=== PATIENT | male | born 1980 | race Caucasian/White ===

== ENCOUNTER 2017-08-29 16:25 | Emergency (ER) | payer OTHER, SELFPAY ==
[2017-08-29 16:32] VITALS: BP 165/99; PULSE 102; RESP 20; TEMP 36.6; O2SAT 97; BMI 24.3
--- NOTE | 2017-08-29 16:39 | HMH.EDGENADL ---
ED Disposition Clinical Impression: Anal fissure Disposition: Home, Self-Care Condition on Discharge: Good Additional Instructions: 1- Drink plenty of liquids. 2- green leafy vegetables. 3- anusolsupp 4- keflex 5- follow up with Dr León in AM in the surgery clinic Referrals: Balbir León MD [Staff Physician] - - Critical Care Critical Care Time: No Attestation: On , the high probability of a clinically significant, sudden or life threatening deterioration of the following system(s) required my full and direct attention, intervention and personal management. The time I documented below is in addition to time spent performing reported procedures but includes the following listed in this critical care notation. Medical Decision Making - Medical Records Medical records reviewed: Yes: I reviewed the patient's medical records. - Jayant Inquiry Pt receiving controlled substance: No Jayant was queried for this patient: No Medical Decision Making Narrative: I reviewed with the patient his history and examination findings and future expectations. He was concerned about his insides and advised him about obtaining a chronic colonoscopy by special. General Adult HPI - General Stated complaint: Bloody Stools, lower abdominal - History of Present Illness HPI narrative: 37 years old white male who has been experiencing intermittent painful rectal bleeding since Wednesday. He had no episodes yesterday and he had twice a day. He states that he is not constipated but the stool was hard, so the blood when he wiped. Denies weakness dizziness shortness of breath. Onset (ago): day(s) (Intermittent for 2 days.) Severity: mild Quality: sharp Consistency: intermittent Relieving factors: other (No bowel movement. ) Exacerbating factors: other (Constipation and a bowel movement. ) Associated symptoms: denies other symptoms - Related Data Allergies Allergy/AdvReac Type Severity Reaction Status Date / Time No Known Drug Allergies Allergy Verified 08/29/17 16:41 [facility] History I have reviewed the patient's past medical history: Yes ROS Obtained: Yes All systems reviewed & no additional complaints - Constitutional Constitutional: Reports as per HPI - Eyes Eyes: Reports as per HPI - ENT Ears, Nose, Mouth, and Throat: Reports as per HPI - Cardiovascular Cardiovascular: Reports as per HPI - Respiratory Respiratory: Yes as per HPI - Gastrointestinal Gastrointestingal: Reports: as per HPI - Musculoskeletal Musculoskeletal: Reports as per HPI - Integumentary/Breasts Skin/Breast: Reports as per HPI - Neurologic Neurologic: Reports as per HPI - Endocrine Endocrine: Reports as per HPI - Hematologic/Lymphatic Henatologic/Lymphatic: Reports as per HPI - Allergic/Immunologic Allergic/Immunologic: Reports as per HPI Physical Exam - General General appearance: alert, in no apparent distress - Head Head exam: atraumatic, normocephalic, normal inspection - Eye Eye exam: Present: normal appearance, PERRL, EOMI - ENT ENT exam: Present: normal exam, normal oropharynx, mucous membranes moist, TM's normal bilaterally, normal external ear exam - Neck Neck exam: Present: normal inspection, full ROM, trachea midline. Absent: meningismus, lymphadenopathy - Chest Chest inspection: Present: normal inspection, symmetric chest wall rise. Absent: tenderness - Respiratory Respiratory exam: Present: normal lung sounds bilaterally. Absent: respiratory distress - Cardiovascular Cardiovascular exam: Present: regular rate, normal rhythm. Absent: JVD - Abdominal Exam Abdominal exam: Present: soft, normal bowel sounds. Absent: distention, tenderness, guarding - Rectal Exam Rectal exam: Present: normal inspection comment: Using a digital rectal exam there was an obvious anal fissure at 6:00 with fresh clot, no active bleeding. The examination was tender and I stop the exam. - Extr
--- NOTE | 2017-08-29 16:43 | ED_ITS ---
ED Disposition Clinical Impression: Anal fissure Disposition: Home, Self-Care Condition on Discharge: Good Additional Instructions: 1- Drink plenty of liquids. 2- green leafy vegetables. 3- anusolsupp 4- keflex 5- follow up with Dr León in AM in the surgery clinic Referrals: Balbir León MD [Staff Physician] - - Critical Care Critical Care Time: No Attestation: On , the high probability of a clinically significant, sudden or life threatening deterioration of the following system(s) required my full and direct attention, intervention and personal management. The time I documented below is in addition to time spent performing reported procedures but includes the following listed in this critical care notation. Medical Decision Making - Medical Records Medical records reviewed: Yes: I reviewed the patient's medical records. - Jayant Inquiry Pt receiving controlled substance: No Jayant was queried for this patient: No Medical Decision Making Narrative: I reviewed with the patient his history and examination findings and future expectations. He was concerned about his insides and advised him about obtaining a chronic colonoscopy by special. General Adult HPI - General Stated complaint: Bloody Stools, lower abdominal - History of Present Illness HPI narrative: 37 years old white male who has been experiencing intermittent painful rectal bleeding since Wednesday. He had no episodes yesterday and he had twice a day. He states that he is not constipated but the stool was hard, so the blood when he wiped. Denies weakness dizziness shortness of breath. Onset (ago): day(s) (Intermittent for 2 days.) Severity: mild Quality: sharp Consistency: intermittent Relieving factors: other (No bowel movement. ) Exacerbating factors: other (Constipation and a bowel movement. ) Associated symptoms: denies other symptoms - Related Data Allergies Allergy/AdvReac Type Severity Reaction Status Date / Time No Known Drug Allergies Allergy Verified 08/29/17 16:[address] [facility] History I have reviewed the patient's past medical history: Yes ROS Obtained: Yes All systems reviewed & no additional complaints - Constitutional Constitutional: Reports as per HPI - Eyes Eyes: Reports as per HPI - ENT Ears, Nose, Mouth, and Throat: Reports as per HPI - Cardiovascular Cardiovascular: Reports as per HPI - Respiratory Respiratory: Yes as per HPI - Gastrointestinal Gastrointestingal: Reports: as per HPI - Musculoskeletal Musculoskeletal: Reports as per HPI - Integumentary/Breasts Skin/Breast: Reports as per HPI - Neurologic Neurologic: Reports as per HPI - Endocrine Endocrine: Reports as per HPI - Hematologic/Lymphatic Henatologic/Lymphatic: Reports as per HPI - Allergic/Immunologic Allergic/Immunologic: Reports as per HPI Physical Exam - General General appearance: alert, in no apparent distress - Head Head exam: atraumatic, normocephalic, normal inspection - Eye Eye exam: Present: normal appearance, PERRL, EOMI - ENT ENT exam: Present: normal exam, normal oropharynx, mucous membranes moist, TM's normal bilaterally, normal external ear exam - Neck Neck exam: Present: normal inspection, full ROM, trachea midline. Absent: meningismus, lymphadenopathy - Chest Chest inspection: Present: normal inspection, symmetric chest wall rise. Absent
[2017-08-29 16:46] VITALS: BP 145/99; PULSE 100
[2017-08-29 16:48] VITALS: BP 145/99; PULSE 100; RESP 20; O2SAT 98
== END 2017-08-29 16:50 | disposition home or self-care (01) ==
LOC: ER 17:01
PROVIDERS: Emergency Provider Emergency Medicine; PCP Family Medicine
DX: K60.2 Anal fissure, unspecified (principal)
CPT/HCPCS: 99282

== ENCOUNTER 2017-09-21 08:09 | Day surgery (SDC) | payer OTHER, SELFPAY ==
[2017-09-20 15:33] VITALS: BMI 19.1
[2017-09-21] VITALS (13 sets, daily range): BP systolic 106–145; BP diastolic 50–81; PULSE 70–87; RESP 14–18; TEMP 36.3–36.9; O2SAT 96–98
--- NOTE | 2017-09-21 09:15 | HMH.SCOPE ---
- Procedure: Date: 09/21/17 Procedure Performed:: Total colonoscopy terminal ileum and anoscopy Indications:: Patient is a pleasant 37-year-old white male. He has a regular patient of Dr. Rebolledo. He was referred from the emergency department for colonoscopy for rectal bleeding and possible anal fissure. He describes passing blood clots. He had been constipated and then noticed passage of blood clots when wiping. He was seen in the emergency department on 08/29/17 and diagnosed with possible fissure. He was treated medically. His symptoms had virtually resolved patient denied any sharp stabbing anal pain. Plan was made for colonoscopy for better evaluation and to rule out alternative etiology. Performing Provider:: Balbir Brown MD Referring Provider:: Dr. Rebolledo Sedation:: Versed 10 mg, fentanyl 200 mcg. Procedure:: Consent was obtained and patient was taken to endoscopy procedure room. He was positioned in a lateral decubitus position. Versed and fentanyl were titrated for the procedure. Digital examination revealed no evidence of any chronic anal fissure. Variable stiffness Olympus colonoscope was inserted via the anus. In the distant there is some irritation. Retroflexion was performed which revealed no evidence of any pathologic internal hemorrhoids. Colonoscope was advanced through the colon. It was advanced to the cecum without difficulty. Ileocecal valve and appendiceal orifice were clearly identified. Colonoscope was advanced into the terminal ileum which appeared grossly normal. Colonoscope was withdrawn through the colon with careful surveillance. Upon withdrawal anoscopy was performed. He had some minor hemorrhoids. No evidence of any fissure. Findings:: Hemorrhoids Recommendations:: Recommend high-fiber diet. Bleeding likely from acute distal rectal tear or acute sure which has now healed. Complications:: None Estimated blood obtained (mL): 1
== END 2017-09-21 11:28 | disposition home or self-care (01) ==
LOC: OUTP 08:11
PROVIDERS: PCP Family Medicine; Visit Provider Surgery
PROC: 0DJD8ZZ Inspection of Lower Intestinal Tract, Via Natural or Artificial Opening Endoscopic (ICD-10-PCS; CPT 45378; principal; 2017-09-21 08:30)
DX: K62.5 Hemorrhage of anus and rectum (principal)
CPT/HCPCS: 45378; 99152

== ENCOUNTER → 2018-01-19 08:33 | Outpatient (CLI) | payer OTHER, SELFPAY ==
--- NOTE | 2018-01-19 08:37 | US_ITS ---
US liver HISTORY: Hepatitis, jaundice ITS.REASON: LIVER DISEASE ORDERING PHYSICIAN: Leslie Guajardo PATIENT AGE: 37 years COMPARISON: None FINDINGS: PANCREAS:Unremarkable. No obvious mass or abnormal fluid collection. No ductal dilatation LIVER:No focal liver lesions demonstrated. Homogeneous echogenicity. No intrahepatic biliary ductal dilatation evident. Portal vein is upper normal at 12 mm. There is appropriate direction of blood flow within the portal vein. RIGHT KIDNEY:Unremarkable. Normal size and echogenicity. No hydronephrosis GALLBLADDER:The gallbladder wall is thickened to 7 mm. The gallbladder is contracted. Common bile duct is normal at 4 mm. No pericholecystic fluid or gallstones evident.. IMPRESSION: 1. Thickened gallbladder wall the gallbladder is contracted. No stones. No biliary dilatation. 2. Otherwise negative hepatic ultrasound
== END ==
PROVIDERS: PCP Family Medicine; Visit Provider Nurse Practitioner
DX: K76.9 Liver disease, unspecified (principal)
CPT/HCPCS: 76705

== ENCOUNTER → 2018-02-08 10:23 | Outpatient (CLI) | payer OTHER, SELFPAY ==
--- NOTE | 2018-02-08 10:28 | NM_ITS ---
NM hepatobiliary wo pharm HISTORY: Abdominal pain, elevated liver enzymes ITS.REASON: THICKENING OF WALL OF GALLBLADDER/ ABD PAIN ORDERING PHYSICIAN: Leslie Guajardo PATIENT AGE: 37 years COMPARISON: 01/19/2018 DOSE: 7.97 mCi technetium Choletec. Fatty meal with ensure FINDINGS: Homogeneous activity is present within the hepatic parenchyma. Activity is present in the gallbladder by 15 minutes. Activity is present in the small bowel by 15 minutes. The gallbladder ejection fraction is calculated to be 75% The patient did not report pain or other symptoms during the fatty meal IMPRESSION: Unremarkable hepatobiliary scan and gallbladder ejection fraction. No evidence of common or cystic duct obstruction with normal gallbladder ejection fraction
== END ==
PROVIDERS: PCP Family Medicine; Visit Provider Nurse Practitioner
DX: K82.8 Other specified diseases of gallbladder (principal); R10.9 Unspecified abdominal pain
CPT/HCPCS: 78226; A9537